=== PATIENT | female | born 1935 | race Caucasian/White ===

== ENCOUNTER 2016-07-18 09:10 | Day surgery (SDC) | payer SELFPAY ==
[~2016-07-18] VITALS: Ht 149.9 cm; Wt 45.1 kg
== END 2016-07-18 13:55 | disposition home or self-care (01) ==
LOC: RAD.S 09:10
PROC: 0BBL3ZX Excision of Left Lung, Percutaneous Approach, Diagnostic (ICD-10-PCS; principal; 2016-07-18)
DX: C78.02 Secondary malignant neoplasm of left lung (principal); Z85.038 Personal history of other malignant neoplasm of large intestine; Z90.49 Acquired absence of other specified parts of digestive tract; J45.909 Unspecified asthma, uncomplicated; Z87.891 Personal history of nicotine dependence; Z98.890 Other specified postprocedural states